=== PATIENT | female | born 2000 | race Caucasian/White ===

== ENCOUNTER 2020-02-13 22:31 | Emergency (ER) | payer OTHER, SELFPAY ==
[2020-02-13 22:34] VITALS: BP 136/75; PULSE 110; RESP 18; TEMP 36.8; O2SAT 96
--- NOTE | 2020-02-13 22:56 | ED.GENADULT ---
HPI - General Adult General Chief complaint: Allergic Reaction Stated complaint: allergic reaction to abx Time Seen by Provider: 02/13/20 22:34 Source: patient Mode of arrival: ambulatory Limitations: no limitations History of Present Illness HPI narrative: Patient is a 19-year-old female who presents complaining of allergic reaction from ciprofloxacin. Patient reports taking Cipro x5 days for kidney infection . Patient reports being diagnosed with infection by PCP office. She denies flank pain, lower abdominal pain or urinary complaints at this time. She reports this evening breaking out with hives and swelling to bilateral hands. She reports taking Benadryl p.o. 25 mg at home. Patient has no evidence of rash, hives or swelling at this time. She denies swelling to face, tongue or difficulty swallowing during allergic reaction. Related Data Allergies Allergy/AdvReac Type Severity Reaction Status Date / Time amoxicillin Allergy Rash Verified 02/13/20 22:43 ciprofloxacin Allergy Rash Verified 02/13/20 22:43 sulfamethoxazole Allergy Rash Verified 02/13/20 22:43 [From Bactrim] trimethoprim [From Bactrim] Allergy Rash Verified 02/13/20 22:43 Review of Systems Review of Systems: Narrative: CONSTITUTIONAL: Denies fever, chills, or sweats. EYES: Denies visual changes, redness, or discharge. ENT: Denies rhinorrhea, congestion, sore throat, or otalgia. CARDIOVASCULAR: Denies chest pain, palpitations, or edema. RESPIRATORY: Denies cough or dyspnea. GASTROINTESTINAL: Denies abdominal pain, nausea, vomiting, or diarrhea. GENITOURINARY: Denies dysuria or hematuria. SKIN: Reports urticaria to extremities and swelling to bilateral hands MUSCULOSKELETAL: Denies back pain, joint pain, or myalgia. NEUROLOGIC: Denies headache, numbness, dizziness, or weakness. PSYCHIATRIC: Denies anxiety or depression. [facility] Past Medical History Medical History (Updated 02/13/20 @ 23:16 by ARNOL Lind) No significant past medical history Surgical History Surgical History (Updated 02/13/20 @ 23:00 by ARNOL Lind) No significant past surgical history Social History Social History (Updated 02/13/20 @ 23:01 by ARNOL Lind) Smoking status: Never smoker Alcohol intake: current Alcohol use details: occasional Substance use: never Living arrangements: with roommate(s) Exam Narrative: Exam Narrative: GENERAL: Well-appearing, well-nourished, and in no acute distress. HEAD: Normocephalic, atraumatic. EYES: No redness or drainage. ENT: Mucous membranes pink and moist. CHEST: No respiratory distress. Clear to auscultation. HEART: Regular rate and rhythm. No murmur appreciated. Normal peripheral pulses. EXTREMITIES: Normal range of motion. No edema. SKIN: Warm, dry, no rash. NEURO: No focal deficits. Alert and oriented x3. Gait steady. PSYCH: Normal affect. No signs of depression or anxiety. Course Vital Signs Vital signs: Vital Signs Temperature 36.8 C 02/13/20 22:34 Pulse Rate 110 H 02/13/20 22:34 Respiratory Rate 18 02/13/20 22:34 Blood Pressure 136/75 02/13/20 22:34 Pulse Oximetry 96 02/13/20 22:34 Temperature 36.8 C 02/13/20 22:34 Pulse Rate 110 H 02/13/20 22:34 Respiratory Rate 18 02/13/20 22:34 Blood Pressure 136/75 02/13/20 22:34 Pulse Oximetry 96 02/13/20 22:34 Medical Decision Making MDM Narrative Medical decision making narrative: Patient given Benadryl, Famotidine and Prednisone in ED for allergic reaction. Patient having no problems maintaining airway. Patient most likely had an allergic reaction to Ciprofloxacin. Discussed with patient to stop taking Cipro. Patient aware of the need to follow up with pcp office tomorrow. Patient aware that if she has difficulty swallowing or breathing to return to the ED. Patient and friend verbalized understanding. Patient is stable for discharge to home with outpatient follow up as discussed. Vital Sig
[2020-02-13] MEDS: predniSONE 20 MG TABLET 40 MG PO (23:23)
[2020-02-13] MEDS: diphenhydrAMINE HCl CAP 25 MG CAPSULE PO (23:23)
[2020-02-13] MEDS: FAMOTIDINE 20 MG TABLET PO (23:24)
[2020-02-13 23:35] VITALS: BP 121/78; PULSE 80; RESP 17; O2SAT 99
== END 2020-02-13 23:35 | disposition home or self-care (01) ==
PROVIDERS: Emergency Provider Nurse Practitioner
DX: T78.40XA Allergy, unspecified, initial encounter (principal)
CPT/HCPCS: 99283; A9270; J7512

== ENCOUNTER 2020-03-15 08:52 | Emergency (ER) | payer OTHER, SELFPAY ==
[2020-03-15] VITALS (13 sets, daily range): BP systolic 107–132; BP diastolic 64–79; PULSE 89–117; RESP 12–20; TEMP 36.3; O2SAT 98–100
--- NOTE | ~2020-03-15 | XR_ITS ---
EXAMINATION: XR chest 1V portable DATE: 03/15/2020 09:48 INDICATION: Shortness of breath. Wheezing. TECHNIQUE: A single frontal view of the chest was obtained. COMPARISON: None. FINDINGS: The chest demonstrates clear lungs without pneumonia, pleural effusion, or pneumothorax. Th e heart size is normal. IMPRESSION: 1. No acute cardiopulmonary disease. Reviewed, dictated and finalized at location A. RAFT ENGINE INSTALLER
[2020-03-15] MEDS: ALBUTEROL SULFATE NEB 2.5 MG/0.5 ML INH 5 MG INHALATION (09:33)
[2020-03-15] MEDS: IPRATROPIUM BR 0.02% INH SOLN 0.5 MG/2.5 ML VIAL INHALATION (09:33)
[2020-03-15] MEDS: predniSONE 20 MG TABLET 60 MG PO (09:34)
--- NOTE | 2020-03-15 10:12 | ED.SOB ---
HPI - SOB/Dyspnea General Chief Complaint: Shortness of Breath/Dyspnea Stated Complaint: diff breathing Time Seen by Provider: 03/15/20 09:07 Source: patient Mode of arrival: ambulatory Limitations: no limitations History of Present Illness HPI Narrative: This patient is a 19 year old female who presents for evaluation of an asthma exacerbation. She states she has been having issues with her asthma over the past 3 to 4 days. She has been using her inhaler and nebulizer and she states she feels like she is still having trouble opening up her lungs. She reports mild sinus congestion. She denies fever, chills, chest pain, nausea, vomiting, diarrhea or loss of taste or smell. Related Data Allergies Allergy/AdvReac Type Severity Reaction Status Date / Time amoxicillin Allergy Rash Verified 02/13/20 22:43 ciprofloxacin Allergy Rash Verified 02/13/20 22:43 sulfamethoxazole Allergy Rash Verified 02/13/20 22:43 [From Bactrim] trimethoprim [From Bactrim] Allergy Rash Verified 02/13/20 22:43 Review of Systems Review of Systems: All systems reviewed & are unremarkable except as noted in HPI and below Respiratory: Respiratory: Reports cough, Reports dyspnea and Reports wheezing Gastrointestinal: Gastrointestinal: Denies abdominal pain, Denies diarrhea, Denies nausea and Denies vomiting PMFSH Past Medical History Medical History (Updated 03/15/20 @ 10:20 by Shannon Szymanski MD) Asthma Surgical History Surgical History (Updated 02/13/20 @ 23:00 by ARNOL Lind) No significant past surgical history Social History Social History (Updated 02/13/20 @ 23:01 by ARNOL Lind) Smoking status: Never smoker Alcohol intake: current Substance use: never Exam Const: General: no acute distress and alert Orientation/consciousness: patient oriented x3 HENMT: Head: normocephalic Face and sinus: face symmetric Eyes: EOM: EOMs intact bilaterally Chest: Chest palpation & inspection: normal inspection of the chest Resp: Effort & Inspection: normal respiratory effort, not labored, no retractions and not tachypneic Auscultation: wheezes expiratory wheezes and throughout Other: able to speak comfortably in complete sentences Cardio: Rate: tachycardic Rhythm: regular rhythm Heart sounds: no murmurs GI: GI Palp: Yes Soft to palpation, No Tenderness to palpation present (GI), No Guarding due to palpation present (GI) and No Rigid due to palpation Auscultation: normal bowel sounds Skin: General skin exam: normal color Rashes: no rashes Neuro: General: patient oriented x3 and moves all extremities Course Reevaluation(s) Reevaluation #1: Patient reports she feels much better. Her lungs are now clear. Date: 03/15/20 Time: 10:18 Vital Signs Vital signs: Vital Signs Pulse Rate 117 H 03/15/20 09:02 Respiratory Rate 20 03/15/20 09:02 Blood Pressure 128/79 03/15/20 09:02 Pulse Oximetry 100 03/15/20 09:02 Temperature 97.3 F L 03/15/20 09:04 Pulse Rate 100 03/15/20 10:31 Respiratory Rate 12 03/15/20 10:31 Blood Pressure 107/64 03/15/20 10:02 Pulse Oximetry 100 03/15/20 10:31 MDM - SOB/Dyspnea Imaging Data Radiologist's impression: ITS Impressions Chest X-Ray 03/15/20 09:49 IMPRESSION: 1. No acute cardiopulmonary disease. Discharge Plan Discharge Clinical Impression: Asthma with exacerbation Qualifiers: Asthma severity: mild Asthma persistence: intermittent Qualified Code(s): J45.21 - Mild intermittent asthma with (acute) exacerbation Patient Disposition: Home, Self-Care Condition: Stable Instructions: Antibiotic Form, Asthma (ED) Additional Instructions: Use your inhaler and nebulizer as prescribed. REturn to ER if your symptoms worsen. Your chest xray was normal. Prescriptions: New prednisone 50 mg tablet 50 mg PO DAILY Qty: 5 RF: 0 No Action prednisone 20 mg tablet 20 mg PO BID 5 Days Qty: 10 RF: 0 Fol
== END 2020-03-15 10:50 | disposition home or self-care (01) ==
PROVIDERS: Emergency Provider General Practice
DX: J45.21 Mild intermittent asthma with (acute) exacerbation (principal)
CPT/HCPCS: 71045; 94640; 99283; J7512

== ENCOUNTER 2020-11-06 15:01 | Emergency (ER) | payer OTHER, SELFPAY ==
[2020-11-06 15:35] VITALS: BP 143/84; PULSE 99; RESP 14; TEMP 36.8; O2SAT 98
[2020-11-06 16:53] VITALS: BP 133/70; PULSE 78; TEMP 36.5; O2SAT 100
--- NOTE | 2020-11-06 17:06 | ED.GENADULT ---
HPI - General Adult General Chief complaint: Skin/Abscess/Foreign Body Stated complaint: FACIAL RASH Time Seen by Provider: 11/06/20 16:59 Source: patient and RN notes reviewed Mode of arrival: ambulatory Limitations: no limitations History of Present Illness HPI narrative: Patient is a 20-year-old female who presents with 1 day duration of perioral rash that is a red raised rash patient is unsure as to the cause of the rash she presents in no distress has used [id number] topical steroid with no improvement patient denies any known allergic exposures or similar occurrence in the past. Patient denies any other symptoms presents in no distress has not been seen by primary care or others for this. Related Data Allergies Allergy/AdvReac Type Severity Reaction Status Date / Time amoxicillin Allergy Rash Verified 02/13/20 22:43 ciprofloxacin Allergy Rash Verified 02/13/20 22:43 sulfamethoxazole Allergy Rash Verified 02/13/20 22:43 [From Bactrim] trimethoprim [From Bactrim] Allergy Rash Verified 02/13/20 22:43 Review of Systems Review of Systems: All systems reviewed & are unremarkable except as noted in HPI and below PMFSH Past Medical History Medical History Asthma Surgical History Surgical History No significant past surgical history Social History Social History Smoking status: Never smoker Alcohol intake: current Alcohol use details: occasional Substance use: never Exam Narrative: Exam Narrative: GENERAL: Well-appearing, well-nourished, and in no acute distress. HEAD: Normocephalic, atraumatic. EYES: PERRLA and EOMI. ENT: Nares clear, no rhinorrhea or epistaxis. CHEST: Clear to auscultation. No respiratory distress. No wheezes rales or rhonchi HEART: Regular rate and rhythm. No murmur heard. EXTREMITIES: Normal range of motion. No edema. SKIN: Warm, dry, fine papular rash around the mouth NEURO: No focal deficits. Alert and oriented x3. Normal speech and gait PSYCH: Normal mood and affect. Course Course Emergency Course: Patient advised to follow with primary care for reevaluation and discussion of dermatology referral if symptoms are not improving on arrival patient in no distress resting comfortably was given an oral dose of steroid advised to continue antihistamines Vital Signs Vital signs: Vital Signs Temperature 98.2 F 11/06/20 15:35 Pulse Rate 99 11/06/20 15:35 Respiratory Rate 14 11/06/20 15:35 Blood Pressure 143/84 H 11/06/20 15:35 Pulse Oximetry 98 11/06/20 15:35 Temperature 97.7 F 11/06/20 16:53 Pulse Rate 78 11/06/20 16:53 Respiratory Rate 14 11/06/20 15:35 Blood Pressure 133/70 11/06/20 16:53 Pulse Oximetry 100 11/06/20 16:53 Medical Decision Making MDM Narrative Medical decision making narrative: Patient in the room in no distress aware of case findings treatment plan and diagnosis agreeing to follow-up as instructed or to return if symptoms worsen or concerns Vital Signs Vital Signs: Vital Signs Temperature 98.2 F 11/06/20 15:35 Pulse Rate 99 11/06/20 15:35 Respiratory Rate 14 11/06/20 15:35 Blood Pressure 143/84 H 11/06/20 15:35 Pulse Oximetry 98 11/06/20 15:35 Temperature 97.7 F 11/06/20 16:53 Pulse Rate 78 11/06/20 16:53 Respiratory Rate 14 11/06/20 15:35 Blood Pressure 133/70 11/06/20 16:53 Pulse Oximetry 100 11/06/20 16:53 Discharge Plan Discharge Clinical Impression: Facial rash Patient Disposition: Home, Self-Care Condition: Stable Instructions: Antibiotic Form, Acute Rash (ED) Additional Instructions: Follow up with your primary care provider within 1-2 days to set up for reevaluation discussion for dermatology referral if your symptoms worsen or concerns. Go to ER for shortness of breath, diffi
[2020-11-06] MEDS: predniSONE 20 MG TABLET 60 MG PO (17:23)
== END 2020-11-06 17:24 | disposition home or self-care (01) ==
LOC: ANHED 17:14
PROVIDERS: Emergency Provider Emergency Medicine; PCP Family Medicine
DX: R21 Rash and other nonspecific skin eruption (principal); J45.909 Unspecified asthma, uncomplicated
CPT/HCPCS: 99283; J7512

== ENCOUNTER 2021-08-31 21:39 | Emergency (ER) | payer SELFPAY ==
--- NOTE | ~2021-08-31 | XR_ITS ---
EXAMINATION: XR chest 2V DATE: 08/31/2021 22:25 INDICATION: Asthma exacerbation TECHNIQUE: PA and lateral views of the chest are obtained. COMPARISON: 03/15/2020 FINDINGS: There are minimal airspace opacities of the lung bases, left greater than right. There is n o pleural effusion or pneumothorax. The cardiomediastinal silhouette is normal. The visualized bones and soft tissues are unremarkable. IMPRESSION: 1. Bibasilar airspace opacities, likely pneumonia. Reviewed, dictated and finalized at location A.
[2021-08-31 22:00] VITALS: BP 135/74; PULSE 108; RESP 20; TEMP 36.4; O2SAT 100
--- NOTE | 2021-08-31 22:18 | ED.ASTHMA ---
HPI - Asthma General Chief Complaint: Asthma <Alva London PA-C - Last Filed: 08/31/21 23:40> Stated Complaint: difficulty breathing <KENNEY Casillas Last Filed: 08/31/21 23:40> Time Seen by Provider: 08/31/21 22:11 <KENNEY Casillas Last Filed: 08/31/21 23:40> Source: patient <KENNEY Casillas Last Filed: 08/31/21 23:40> Mode of arrival: ambulatory <KENNEY Casillas Last Filed: 08/31/21 23:40> Limitations: no limitations <KENNEY Casillas Last Filed: 08/31/21 23:40> History of Present Illness HPI Narrative: This is a 21-year-old female that presents to the emergency department for asthma exacerbation. Reports she has been having some trouble with her allergies. Since yesterday she has had wheezing and shortness of breath. She has been taking her albuterol inhaler with little relief. Reports she does have an inhaled corticosteroid, but she is not consistent with taking this. Denies fever or cough. <KENNEY Casillas Last Filed: 08/31/21 23:40> Related Data Allergies/Adverse Reactions: Allergies Allergy/AdvReac Type Severity Reaction Status Date / Time amoxicillin Allergy Rash Verified 08/31/21 22:31 ciprofloxacin Allergy Rash Verified 08/31/21 22:31 sulfamethoxazole Allergy Rash Verified 08/31/21 22:31 [From Bactrim] trimethoprim [From Bactrim] Allergy Rash Verified 08/31/21 22:31 <KENNEY Casillas Last Filed: 08/31/21 23:40> Review of Systems Review of Systems: CONSTITUTIONAL: Denies fever RESPIRATORY: Reports dyspnea. Denies cough <KENNEY Casillas Last Filed: 08/31/21 23:40> All systems reviewed & are unremarkable except as noted in HPI and below <KENNEY Casillas Last Filed: 08/31/21 23:40> [facility] Past Medical History Medical History: Medical History Asthma <Alva London PA-C - Last Filed: 08/31/21 23:40> Surgical History Surgical History: Surgical History No significant past surgical history <Alva London PA-C - Last Filed: 08/31/21 23:40> Social History Social History: Social History Smoking status: Never smoker Alcohol intake: current Alcohol use details: occasional Substance use: never <Alva London PA-C - Last Filed: 08/31/21 23:40> Exam Narrative: GENERAL: Well-appearing, well-nourished, and in no acute distress. HEAD: Normocephalic, atraumatic. EYES: EOMI. ENT: Nares clear, no rhinorrhea or epistaxis. Mucous membranes moist. Oropharynx without tonsillar hypertrophy exudate or other lesions. CHEST: No respiratory distress. Diffuse expiratory wheezing. No rales or rhonchi HEART: Regular rate and rhythm. No murmur heard. Normal peripheral pulses. EXTREMITIES: Normal range of motion. No edema. SKIN: Warm, dry, no rash. NEURO: No focal deficits. Alert and oriented x3. PSYCH: Normal mood and affect <Alva London PA-C - Last Filed: 08/31/21 23:40> Course AUTOMATIC DISPENSER MECHANIC/PA Physician Supervision For this patient encounter, I reviewed the AUTOMATIC DISPENSER MECHANIC or PA documentation, treatment plan, and medical decision making <Shane Hammond MD - Last Filed: 08/31/21 23:45> Vital Signs Vital signs: Vital Signs Temperature 97.6 F 08/31/21 22:00 Pulse Rate 108 H 08/31/21 22:00 Respiratory Rate 20 08/31/21 22:00 Blood Pressure 135/74 08/31/21 22:00 Pulse Oximetry 100 08/31/21 22:00 Temperature 97.6 F 08/31/21 22:00 Pulse Rate 105 H 08/31/21 22:40 Respiratory Rate 14 08/31/21 22:40 Blood Pressure 135/74 08/31/21 22:00 Pulse Oximetry 100 08/31/21 22:37 <Alva London PA-C - Last Filed: 08/31/21 23:40> Vital Signs Temperature 97.6 F 08/31/21 22:00 Pulse Rate 108 H 08/31/21 22:00 Respiratory Rate 20 08/31/21 22:00 Blood
[2021-08-31 22:30] VITALS: PULSE 99; RESP 14
[2021-08-31] MEDS: IPRATROPIUM BR 0.02% INH SOLN 0.5 MG/2.5 ML VIAL INHALATION (22:34)
[2021-08-31] MEDS: ALBUTEROL SULFATE NEB 2.5 MG/0.5 ML INH 5 MG INHALATION (22:34)
[2021-08-31 22:37] VITALS: PULSE 106; RESP 20; O2SAT 100
[2021-08-31] MEDS: methylPREDNISolone SOD SUCC 125 MG VIAL IV PUSH (22:37)
[2021-08-31 22:40] VITALS: PULSE 105; RESP 14
[2021-08-31 23:53] VITALS: BP 123/77; PULSE 82; RESP 16; O2SAT 100
== END 2021-08-31 23:54 | disposition home or self-care (01) ==
PROVIDERS: Emergency Provider Emergency Medicine; PCP Family Medicine
DX: J45.901 Unspecified asthma with (acute) exacerbation (principal)
CPT/HCPCS: 71046; 94640; 96374; 99284; J2930

== ENCOUNTER 2022-03-22 13:11 | Emergency (ER) | payer OTHER, SELFPAY ==
--- NOTE | ~2022-03-22 | CT_ITS ---
EXAMINATION: CT facial bones w con DATE: 03/22/2022 16:23 INDICATION: left jaw swelling . TECHNIQUE: Computed tomography (CT) of the facial bones and maxillofacial region was performed with 7 5 mL Omnipaque 350 intravenous contrast. Automated exposure control and iterative reconstruction tech nique were employed. The dose-length product was 371.18 mGy-cm. COMPARISON: None. FINDINGS: Soft Tissues: Soft tissue swelling and fat induration over the left lower face adjacent to the presu med recent surgical site at the left posterior mandibular molar. 15 mm area of soft tissue density wi th surrounding slightly hyperdense tissue but without discrete rim enhancement, may represent phlegmo n. Facial bones: No acute fracture. No lytic or blastic process. Eyes: The globes are intact. The soft tissue planes of the orbits are maintained. Paranasal Sinuses: Aerated secretions in the left inferior maxillary sinus. Mucosal thickening in th e right maxillary sinus. Retention cysts or polyps in the left posterior ethmoid and sphenoid sinuses . Foreign Bodies: No radiopaque foreign bodies. Other Findings: Empty sockets with mucosal thickening in the bilateral maxillary and mandibular poste rior molars likely from recent extraction. IMPRESSION: Likely cellulitis and possible phlegmon of the left lower face, correlate with findings of infection at the presumed recent left posterior molar extraction site. No definite formed, rim enhancing absces s detected at this time. Possible acute left medullary sinusitis. Reviewed, dictated and finalized at location K. LOPMENT ANALYST IMPRESSION: Likely cellulitis and possible phlegmon of the left lower face, correlate with findings of infection at the presumed recent left posterior molar extraction si te. No definite formed, rim enhancing abscess detected at this time. Possible a cute left medullary sinusitis.
[2022-03-22 13:19] VITALS: BP 143/70; PULSE 104; RESP 20; TEMP 36.8; O2SAT 97
[2022-03-22 15:45] LABS: Basophils Absolute Auto 0.1 K/mm3 (0.0-0.1); Basophils Percent Auto 0.6 % (0.2-1.2); Eosinophils Absolute Auto 0.7 K/mm3 (0-0.3); Eosinophils Percent Auto 5.3 % (0-4.4); Hematocrit 42.6 % (37.0-47.0); Hemoglobin 14.1 g/dL (12.0-15.0); Immature Granulocyte Absolute 0.04 K/mm3 (0.00-0.031); Immature Granulocyte Percent A 0.3 % (0-0.5); Lymphocytes Absolute Auto 2.25 K/mm3 (0.9-3.2); Lymphocytes Percent Auto 17.9 % (18.3-44.2); Mean Corpuscular HGB Conc 33.1 g/dl (32-36); Mean Corpuscular Hemoglobin 30.2 pg (26-34); Mean Corpuscular Volume 91.2 fl (80-100); Mean Platelet Volume 11.1 fl (7.4-10.4); Monocytes Absolute Auto 0.9 K/mm3 (0.1-0.6); Monocytes Percent Auto 7.2 % (2.6-8.5); Neutrophils Absolute Auto 8.6 K/mm3 (1.3-6.7); Neutrophils Percent Auto 68.7 % (45.5-73.1); Platelet Count Result 342 k/mm3 (150-375); Red Blood Count 4.67 M/mm3 (4.2-5.4); Red Cell Distribution Width 12.2 % (11.5-14.5); White Blood Count 12.6 K/mm3 (4.5-10.0)
[2022-03-22] MEDS: KETOROLAC 30 MG/ML VIAL (*BKC) IV PUSH (15:53)
[2022-03-22 15:55] LABS: Alanine Aminotransferase 14 U/L (6-35); Albumin Level 4.8 g/dL (3.5-5.1); Alkaline Phosphatase 94 U/L (38-126); Anion Gap 12 mmol/L (8-16); Aspartate Amino Transferase 22 U/L (14-36); Bilirubin,Total 0.5 mg/dL (0.2-1.3); Blood Urea Nitrogen 7 mg/dL (7-17); Calcium 9.4 mg/dL (8.4-10.2); Carbon Dioxide 26 mmol/L (22-30); Chloride 102 mmol/L (98-107); Estimated CRCL calculation 115 ml/min; Estimated Glomerular Filt Rate > 60; Glucose 79 mg/dL (65-110); Potassium 4.5 mmol/L (3.4-5.0); Sodium 140 mmol/L (137-145)
--- NOTE | 2022-03-22 17:24 | ED.DENTAL ---
HPI - Dental/Oral General Chief complaint: Dental/Oral Stated complaint: SWELLING AFTER WIDSOM TOOTH EXTRACTION Time Seen by Provider: 03/22/22 14:59 Source: patient and RN notes reviewed Mode of arrival: ambulatory Limitations: no limitations History of Present Illness HPI Narrative: This is a 21 year old female who presents for evaluation of left jaw swelling s/p wisdom tooth extraction. She reports she had her wisdom teeth extracted on Wednesday. She noticed that she had bruising to left jaw after her procedure. She reports her swelling has continued to worsen over the past few days. She reports pain with opening her mouth. Her pain is controlled by her pain medication. She denies nausea, vomiting, fever or chills. She also denies pain with swallowing. Related Data Allergies Allergy/AdvReac Type Severity Reaction Status Date / Time amoxicillin Allergy Rash Verified 03/22/22 15:41 ciprofloxacin Allergy Rash Verified 03/22/22 15:41 sulfamethoxazole Allergy Rash Verified 03/22/22 15:41 [From Bactrim] trimethoprim [From Bactrim] Allergy Rash Verified 03/22/22 15:41 Review of Systems Review of Systems: All systems reviewed & are unremarkable except as noted in HPI and below Constitutional: Constitutional: Denies chills, Denies fatigue and Denies fever(s) ENT: Denies nasal congestion and Denies sore throat Cardiovascular: Cardiovascular: Denies chest pain and Denies rapid heart rate Gastrointestinal: Gastrointestinal: Denies abdominal pain, Denies nausea and Denies vomiting PMFSH Past Medical History Medical History Asthma Surgical History Surgical History No significant past surgical history Social History Social History Smoking status: Never smoker Alcohol intake: current Alcohol use details: occasional Substance use: never Exam Const: General: no acute distress and alert Nutritional Appearance: well nourished Orientation/consciousness: patient oriented x3 Limitations: no limitations HENMT: Head: normocephalic and atraumatic Face/Nose/Sinus: Normal external nose present Face and sinus: sinuses nontender and face symmetric Mouth: Yes lip normal, Yes tongue normal, Yes Normal salivary glands and ducts present, No muffled voice, No tongue abnormal and Yes other (bruising to jaw, no erythema, no significant swelling at socket) Throat: posterior oropharynx normal, tonsils normal and uvula midline Eyes: Conjunctivae: conjunctivae normal EOM: EOMs intact bilaterally Neck: Neck: normal visual inspection and no lymphadenopathy Resp: Effort & Inspection: normal respiratory effort Auscultation: clear to auscultation bilaterally Skin: Rashes: no rashes Wounds: no wounds Neuro: General: patient oriented x3, moves all extremities and CN's II-XI intact bilaterally Cranial nerves: Yes Nystagmus not present Extrem: General: normal to inspection Psych: Mental Status: mental status grossly normal Affect: normal affect Course Reevaluation(s) Reevaluation #1: I have discussed with patient that CT shows fluid collection. It is likely a hematoma instead of abscess. I will start on antibiotics. Date: 03/22/22 Time: 17:46 Vital Signs Vital signs: Vital Signs Temperature 98.2 F 03/22/22 13:19 Pulse Rate 104 H 03/22/22 13:19 Respiratory Rate 20 03/22/22 13:19 Blood Pressure 143/70 H 03/22/22 13:19 Pulse Oximetry 97 03/22/22 13:19 Oxygen Delivery Room Air 03/22/22 13:19 Temperature 98.2 F 03/22/22 13:19 Pulse Rate 78 03/22/22 18:26 Respiratory Rate 16 03/22/22 18:26 Blood Pressure 122/86 03/22/22 18:26 Pulse Oximetry 99 03/22/22 18:26 Oxygen Delivery Room Air 03/22/22 13:19 MDM - Dental/Oral Lab Data Attestation: I reviewed the patient's lab results. Result diagrams: 03/22/22
[2022-03-22] MEDS: CLINDAMYCIN 450 MG in DEXTROSE 5% IN WATER 50 ML 106 MG IVPB (17:45)
[2022-03-22 18:26] VITALS: BP 122/86; PULSE 78; RESP 16; O2SAT 99
== END 2022-03-22 18:42 | disposition home or self-care (01) ==
PROVIDERS: Emergency Provider General Practice; PCP Family Medicine
DX: R22.0 Localized swelling, mass and lump, head (principal); Z98.818 Other dental procedure status; J45.909 Unspecified asthma, uncomplicated; R93.89 Abnormal findings on diagnostic imaging of other specified body structures
CPT/HCPCS: 36415; 70487; 80053; 81025; 85025; 96365; 96375; 99284; J1885; Q9967

== ENCOUNTER 2023-01-06 00:13 | Emergency (ER) | payer OTHER, SELFPAY ==
[2023-01-06 00:16] VITALS: BP 137/78; PULSE 92; RESP 18; TEMP 36.8; O2SAT 100
[2023-01-06 03:13] VITALS: O2SAT 100
--- NOTE | 2023-01-06 04:56 | ED.GENADULT ---
HPI - General Adult General Chief complaint: Shortness of Breath/Dyspnea Stated complaint: asthma, so Time Seen by Provider: 01/06/23 04:46 History of Present Illness HPI narrative: Patient a 22-year-old female who presents the emergency department with chief complaint of asthma exacerbation. The patient reports she has history of asthma uses inhaler reports that she is out of her nebulizer solution. The patient states she is recently had an upper respiratory infection and reports that she is out of prednisone at home. The patient states she is been wheezing and reports that this feels similar to whenever she has an exacerbation in the past. Related Data Allergies Allergy/AdvReac Type Severity Reaction Status Date / Time amoxicillin Allergy Rash Verified 01/06/23 03:15 ciprofloxacin Allergy Rash Verified 01/06/23 03:15 sulfamethoxazole Allergy Rash Verified 01/06/23 03:15 [From Bactrim] trimethoprim [From Bactrim] Allergy Rash Verified 01/06/23 03:15 Review of Systems Review of Systems: A 10 system review of systems was completed on the patient and is negative except for what is stated in the HPI. Nursing and ancillary documentation was reviewed. [facility] Past Medical History Medical History Asthma Surgical History Surgical History No significant past surgical history Social History Social History Smoking status: Never smoker Alcohol intake: current Alcohol use details: occasional Substance use: never Living arrangements: with roommate(s) Exam Narrative: GENERAL: Well-appearing, well-nourished, and in no acute distress. HEAD: Normocephalic, atraumatic. EYES: PERRLA and EOMI. ENT: Nares clear, no rhinorrhea or epistaxis. Mucous membranes moist. NECK: Supple. CHEST: Scattered expiratory wheeze at the end phase of exhalation. No respiratory distress. HEART: Regular rate and rhythm. No murmur heard. Normal peripheral pulses. ABDOMEN: Soft, nontender, nondistended, normal active bowel sounds. EXTREMITIES: Normal range of motion. No edema. SKIN: Warm, dry, no rash. NEURO: No focal deficits. Alert and oriented x3. PSYCH: Normal mood and affect. Course Vital Signs Vital signs: Vital Signs Temperature 36.8 C 01/06/23 00:16 Pulse Rate 92 01/06/23 00:16 Respiratory Rate 18 01/06/23 00:16 Blood Pressure 137/78 01/06/23 00:16 Pulse Oximetry 100 01/06/23 00:16 Oxygen Delivery Room Air 01/06/23 00:16 Temperature 36.8 C 01/06/23 00:16 Pulse Rate 92 01/06/23 00:16 Respiratory Rate 18 01/06/23 00:16 Blood Pressure 137/78 01/06/23 00:16 Pulse Oximetry 100 01/06/23 03:13 Oxygen Delivery Room Air 01/06/23 03:13 Medical Decision Making MDM Narrative Medical decision making narrative: Differential diagnosis includes asthma exacerbation, upper respiratory infection. Patient is currently not hypoxic not tachypneic and showing no signs of respiratory distress the patient has normal speech without tachypnea. Patient will be given a prednisone load in the emergency department 60 mg and discharged home on a 40 mg pulse The patient will be given a prescription for albuterol nebulizer solution Vital Signs Vital Signs: Vital Signs Temperature 36.8 C 01/06/23 00:16 Pulse Rate 92 01/06/23 00:16 Respiratory Rate 18 01/06/23 00:16 Blood Pressure 137/78 01/06/23 00:16 Pulse Oximetry 100 01/06/23 00:16 Oxygen Delivery Room Air 01/06/23 00:16 Temperature 36.8 C 01/06/23 00:16 Pulse Rate 92 01/06/23 00:16 Respiratory Rate 18 01/06/23 00:16 Blood Pressure 137/78 01/06/23 00:16 Pulse Oximetry 100 01/06/23 03:13 Oxygen Delivery Room Air 01/06/23 03:13 Discharge Plan Discharge Clinical Impression: Acute asthma exacerbat
[2023-01-06] MEDS: predniSONE 20 MG TABLET 60 MG PO (05:04)
[2023-01-06] MEDS: ALBUTEROL SULFATE NEB 2.5 MG/3 ML INH INHALATION (05:10)
[2023-01-06] MEDS: IPRATROPIUM BR 0.02% INH SOLN 0.5 MG/2.5 ML VIAL INHALATION (05:10)
[2023-01-06 05:12] VITALS: PULSE 78; RESP 19
[2023-01-06 05:25] VITALS: PULSE 84; RESP 19
[2023-01-06 05:40] VITALS: BP 150/79; PULSE 89; RESP 15; O2SAT 99
== END 2023-01-06 05:44 | disposition home or self-care (01) ==
PROVIDERS: Emergency Provider Emergency Medicine; PCP Family Medicine
DX: J45.901 Unspecified asthma with (acute) exacerbation (principal)
CPT/HCPCS: 94640; 99283; J7512

== ENCOUNTER 2023-06-11 18:51 | Emergency (ER) | payer OTHER, SELFPAY ==
--- NOTE | ~2023-06-11 | XR_ITS ---
EXAMINATION: XR chest 2V Exam Date/Time: 06/11/2023 19:46 PURCHASE ORDER CHECKER HISTORY: asthma, cough, dyspnea Comparison: 08/31/2021. RESULT: Lines, tubes, and devices: None. Lungs and pleura: Clear. Cardiomediastinal silhouette: Stable. Other: No acute osseous or upper abdominal finding. IMPRESSION: No acute cardiopulmonary process. Reviewed, dictated and finalized at location K. HASE ORDER CHECKER
[2023-06-11 19:20] VITALS: BP 145/79; PULSE 95; RESP 18; TEMP 36.3; O2SAT 98
--- NOTE | 2023-06-11 19:22 | ED.ASTHMA ---
HPI - Asthma General Chief Complaint: Asthma Stated Complaint: asthma Time Seen by Provider: 06/11/23 19:22 Focused HPI: 22 y/o F with a hx of asthma reports for evaluation for dyspnea and dry cough x5 days. Pt is reporting associated chest tightness and is stating this is how her asthma normally presents. She has been using her albuterol with some relief. Also states she took a dose of 20mg prednisone today without improvement. Denies fever, lower extremity edema, hemoptysis. GENERAL: Well-appearing, well-nourished, and in no acute distress. HEAD: Normocephalic, atraumatic. CHEST: Clear to auscultation. ?No respiratory distress. Speaking in full sentences. HEART: Regular rate and rhythm.? NEURO: ?Alert and oriented x3. Patient screened in triage and initial orders placed.? ?Additional care and disposition to be based upon?diagnostic testing and treatment. History of Present Illness HPI Narrative: 22 y/o F with a hx of asthma reports for evaluation for dyspnea and dry cough x5 days. Pt is reporting associated chest tightness and is stating this is how her asthma normally presents. She has been using her albuterol with some relief. Also states she took a dose of 20mg prednisone today without improvement. Denies fever, lower extremity edema, hemoptysis. Patient uses albuterol solution and Flovent. States she is out of Flovent. Related Data Allergies Allergy/AdvReac Type Severity Reaction Status Date / Time amoxicillin Allergy Rash Verified 01/06/23 03:15 ciprofloxacin Allergy Rash Verified 01/06/23 03:15 sulfamethoxazole Allergy Rash Verified 01/06/23 03:15 [From Bactrim] trimethoprim [From Bactrim] Allergy Rash Verified 01/06/23 03:15 Review of Systems Review of Systems: CONSTITUTIONAL: Denies fever, chills, or sweats. EYES: Denies visual changes, redness, or discharge. ENT: See HPI CARDIOVASCULAR: Denies chest pain, palpitations, or edema. RESPIRATORY: See HPI GASTROINTESTINAL: Denies abdominal pain, nausea, vomiting, or diarrhea. GENITOURINARY: Denies dysuria or hematuria. SKIN: Denies rash or itching. MUSCULOSKELETAL: Denies back pain, joint pain, or myalgia. NEUROLOGIC: Denies headache, numbness, or weakness. PSYCHIATRIC: Denies anxiety or depression. PMFSH Past Medical History Medical History Asthma Surgical History Surgical History No significant past surgical history Social History Social History Smoking status: Never smoker Alcohol intake: current Alcohol use details: occasional Substance use: never Living arrangements: with roommate(s) Exam Narrative: GENERAL: Well-appearing, well-nourished, and in no acute distress. HEAD: Normocephalic, atraumatic. EYES: PERRLA and EOMI. ENT: Nares clear, no rhinorrhea or epistaxis. Mucous membranes moist. NECK: Supple. CHEST: Clear to auscultation. No respiratory distress. No wheezing, rales or rhonchi. Patient speaking in full sentences. HEART: Regular rate and rhythm. No murmur heard. Normal peripheral pulses. EXTREMITIES: Normal range of motion. No edema. SKIN: Warm, dry, no rash. NEURO: No focal deficits. Alert and oriented x3 Course Vital Signs Vital signs: Vital Signs Temperature 97.4 F L 06/11/23 19:20 Pulse Rate 95 06/11/23 19:20 Respiratory Rate 18 06/11/23 19:20 Blood Pressure 145/79 H 06/11/23 19:20 Pulse Oximetry 98 06/11/23 19:20 Oxygen Delivery Room Air 06/11/23 19:20 Temperature 97.4 F L 06/11/23 19:20 Pulse Rate 95 06/11/23 19:20 Respiratory Rate 18 06/11/23 19:20 Blood Pressure 145/79 H 06/11/23 19:20 Pulse Oximetry 98 06/11/23 19:20 Oxygen Delivery Room Air 06/11/23 19:20 MDM - Asthma MDM Narrative Medical decision making narrative: 22-year-old female with history of asthma reports for eval
[2023-06-11 20:04] LABS: Influenza A QL RT-PCR Positive (Negative); Influenza B QL RT-PCR Negative (Negative); RSV RNA, RT-PCR Negative (Negative); SARS-CoV-2 RNA PCR Negative (Negative)
[2023-06-11 21:20] VITALS: BP 149/79; PULSE 76; RESP 16; TEMP 36.4; O2SAT 99
== END 2023-06-11 21:23 | disposition home or self-care (01) ==
LOC: ANHED 21:22
PROVIDERS: Emergency Provider Physician Assistant
DX: J10.1 Influenza due to other identified influenza virus with other respiratory manifestations (principal); J45.909 Unspecified asthma, uncomplicated; Z20.822 Contact with and (suspected) exposure to COVID-19
CPT/HCPCS: 71046; 87637; 99283